=== PATIENT | male | born 1950 | race Caucasian/White ===

== ENCOUNTER 2021-12-13 19:58 | Emergency (ER) | payer MEDICARE ==
[~2021-12-13] VITALS: Ht 180.3 cm; Wt 104.5 kg
[2021-12-13 19:59] VITALS: BP 154/82
[2021-12-13] MEDS ORDERED: LIDOCAINE 2% MDV 20ML VIAL SC ONE (21:10)
[2021-12-13] MEDS ORDERED: BOOSTRIX/ADACEL VACCINE (DIPHTH/PERTUSS/ACELL/TETANUS) 0.5ML SYR IM ONE (21:10)
[2021-12-13] MEDS ORDERED: CEPH500C PO (21:53)
[2021-12-13] MEDS ORDERED: CEPHALEXIN 500 MG CAP PO ONE (21:55)
== END 2021-12-13 22:01 | disposition home or self-care (01) ==
LOC: M ED 19:58
DX: S61.234A Puncture wound without foreign body of right ring finger without damage to nail, initial encounter (principal); W45.8XXA Other foreign body or object entering through skin, initial encounter; Y92.89 Other specified places as the place of occurrence of the external cause